=== PATIENT | female | born 1965 | race Caucasian/White ===

== ENCOUNTER → 2019-09-09 | Outpatient (CLI) | payer MEDICARE, MEDICAID ==
[~2019-09-09] MED LIST: ATEN50TA PO; BACL10TA PO; CLON-371 PO; HYDR25TA4 PO; OMEP20TA5 PO; ONDA4TAB12 PO; SUMA100T16 PO; TOP100T PO
== END | disposition home or self-care (01) ==
LOC: CARD DIAG 12:50
PROVIDERS: ATTEND Psychiatry & Neurology Neurology
DX: I08.8 Other rheumatic multiple valve diseases (principal); I42.9 Cardiomyopathy, unspecified; I10 Essential (primary) hypertension
CPT/HCPCS: 93306